=== PATIENT | female | born 1980 | race Caucasian/White ===

== ENCOUNTER 2017-01-16 15:06 | Emergency (ER) | payer SELFPAY ==
[2017-01-16 15:08] VITALS: BP 135/72; PULSE 102; RESP 20; TEMP 98.8; O2SAT 98
== END 2017-01-16 15:40 | disposition left against medical advice (07) ==
LOC: NED 15:06
DX: L98.9 Disorder of the skin and subcutaneous tissue, unspecified (principal)
CPT/HCPCS: 99281